=== PATIENT | female | born 1965 | race Caucasian/White ===

== ENCOUNTER 2019-01-21 13:18 | Emergency (ER) | payer OTHER ==
[~2019-01-21] VITALS: Ht 165.1 cm; Wt 110.2 kg
[~2019-01-21 13:18] MED LIST: CIPR500T4 PO; HYDR-3980 PO; METR500T PO
[2019-01-21 13:27] VITALS: Ht 165.1 cm; Wt 110.2 kg
[2019-01-21] MEDS ORDERED: SOD CHLORIDE 0.9% 1,000 ML IV STA (14:31)
[2019-01-21] MEDS ORDERED: ONDANSETRON 4 MG INJ IV STA ×2 (14:31→16:20)
[2019-01-21] MEDS ORDERED: HYDROmorphONE 1 MG/ML SYG IV STA (14:31)
[2019-01-21] MEDS ORDERED: HYDROmorphONE 0.5 MG/0.5 ML SYG IV STA (16:20)
--- NOTE | 2019-01-21 16:23 | ERD ---
ER Documentation Chief Complaint Chief Complaint shoulder pain that radiates to lower back c/o SOB x2 days HPI This is a 53-year-old female who is here because of pain located in the lower mid abdomen and left lower quadrant that radiates to her left flank. She says the pain has been there for 3 days. Originally started is off-and-on sharp pain has become more constant. He says at times the pain gets so bad that it takes her breath away. She has no chest pain or shortness of breath. No history of diverticulitis or prior kidney stones. She said this morning she had a bowel movement and there is a little bit of blood in her stool that was somewhat loose. ROS All systems reviewed and are negative except as per history of present illness. Medications Home Meds Active Scripts Hydrocodone/Acetaminophen (Romney 10-325 Tablet) 1 Each Tablet, 1 TAB PO Q6H PRN for PAIN, #9 TAB Prov:PENNY AGARWALS A. DO 01/21/19 Metronidazole* (Flagyl*) 500 Mg Tablet, 500 MG PO TID for 10 Days, TAB Prov:CHERIEOSMINDASTOLOS A. DO 01/21/19 Ciprofloxacin Hcl* (Ciprofloxacin Hcl*) 500 Mg Tablet, 500 MG PO BID for 7 Days, TAB Prov:LEVICOS,APOSTOLOS A. DO 01/21/19 Allergies Allergies: Coded Allergies: No Known Allergy (Unverified , 01/21/19) PMhx/Soc Medical and Surgical Hx: pt denies Medical Hx History of Surgery: Yes (, TUBAL LITIGATION) Anesthesia Reaction: No Hx Neurological Disorder: No Hx Respiratory Disorders: No Hx Cardiac Disorders: No Hx Psychiatric Problems: No Hx Miscellaneous Medical Probl: No Hx Alcohol Use: No Hx Substance Use: No Hx Tobacco Use: No Smoking Status: Never smoker FmHx Family History: No coronary disease Physical Exam Vitals Vital Signs Date Temp Pulse Resp B/P (MAP) Pulse Ox O2 O2 Flow FiO2 Time Delivery Rate 01/21/19 76 17 193/96 100 Room Air 14:44 (128) 01/21/19 97.7 98 18 195/109 96 13:27 (137) Physical Exam Const: Well-developed, well-nourished Head: Atraumatic, normocephalic Eyes: Normal Conjunctiva, PERRLA, EOMI, normal sclera, no nystagmus ENT: Normal External Ears, Nose and Mouth, moist mucus membranes. Neck: Full range of motion. No meningismus, no lymphadenopathy. Resp: Clear to auscultation bilaterally, no wheezing, rhonchi, rales Cardio: Regular rate and rhythm, no murmurs, S1 S2 present Abd: Soft, mild to moderate left lower quadrant tenderness n tender x 4, non distended. Normal bowel sounds, no guarding or rebound, no pulsitile abdominal masses or bruits Skin: No petechiae or rashes, no ecchymosis , no maculopapular rash Back: No midline or flank tenderness Ext: No cyanosis, or edema, FROM x 4, normal inspection, neurovascularly intact x 4 Neur: Awake and alert, STR 5/5 x 4, sensation intact x 4, no focal findings, cerebellum intact Psych: Normal Mood and Affect Result Diagram: 01/21/19 1458 01/21/19 1458 Results 24 hrs Laboratory Tests Test 01/21/19 14:57 01/21/19 14:58 Urine Color YELLOW Urine Clarity SLIGHTLY CLOUDY Urine pH 7.0 Urine Specific [place] 1.013 Urine Ketones NEGATIVE mg/dL Urine Nitrite NEGATIVE mg/dL Urine Bilirubin NEGATIVE mg/dL Urine Urobilinogen NEGATIVE mg/dL Urine Leukocyte Esterase TRACE Patito/ul Urine Microscopic RBC 0 /HPF Urine Microscopic WBC 1 /HPF Urine Squamous Epithelial Cells FEW /HPF Urine Bacteria FEW /HPF Urine Hemoglobin NEGATIVE mg/dL Urine Glucose NEGATIVE mg/dL Urine Total Protein NEGATIVE mg/dl White Blood Count 5.4 10^3/ul Red Blood Count 3.86 10^6/ul Hemoglobin 12.3 g/dl Hematocrit 37.6 % Mean Corpuscular Volume 97.4 fl Mean Corpuscular Hemoglobin 31.9 pg Mean Corpuscular Hemoglobin Concent 32.7 g/dl Red Cell Distribution Width 12.7 % Platelet Count 284 10^3/UL Mean Platelet Volume 10.7 fl Immature Granulocytes % 0.200 % Neutrophils % 48.9 % Lymphocytes % 37.2 % Monocytes % 10.8 % Eosinophils % 2.2 % Basophils % 0.7 % Nucleated Red Blood Cells % 0.0 /100WBC Immature Granulocytes # 0.010 10^3/ul Neutrophils # 2.6 10^3/ul Lymphocytes # 2.0 10^3/ul Monocytes # 0.6 10^3/ul Eosinophils # 0.1 10^3/ul Basophils # 0.0 10^3/ul Nucleated Red Blood Cells # 0.0 10^3/ul Sodium Level 140 mmol/L Potassium Level 4.1 mmol/L Chloride Level 102 mmol/L Carbon Dioxide Level 29 mmol/L Anion Gap 9 Blood Urea Nitrogen 14 mg/dl Creatinine 0.72 mg/dl Est Glomerular Filtrat Rate mL/min > 60 mL/min Glucose Level 92 mg/dl Calcium Level 9.3 mg/dl Total Bilirubin 0.5 mg/dl Direct Bilirubin 0.00 mg/dl Indirect Bilirubin 0.5 mg/dl Aspartate Amino Transf (AST/SGOT) 22 IU/L Alanine Aminotransferase (ALT/SGPT) 26 IU/L Alkaline Phosphatase 76 IU/L Total Protein 8.0 g/dl Albumin 4.3 g/dl Globulin 3.70 g/dl Albumin/Globulin Ratio 1.16 Lipase 63 U/L Current Medications Medications Dose Sig/Hollie Start Time Status Last (Trade) Ordered Route PRN Stop Time Admin Dose Reason Admin Sodium 1,000 ml @ Q1H STAT 01/21/19 DC 01/21/19 Chloride 1,000 mls/hr IV 14:31 15:17 01/21/19 15:30 1 mg ONCE STAT 01/21/19 DC 01/21/19 Hydromorphone IV 14:31 15:17 HCl 01/21/19 14:33 (Dilaudid) Ondansetron 4 mg ONCE STAT 01/21/19 DC 01/21/19 HCl (Zofran IV 14:31 15:17 Inj) 01/21/19 14:33 Procedures/[place] [id number] Radiology Main Line: [phone] DIAGNOSTIC IMAGING REPORT Patient: HANH MUKHERJEE : 1965 Age: 53 Sex: F MR #: [id number] DOS: 01/21/19 1431 Ordering MD: NOA AGARWAL DO Location: E/R Room/Bed: PROCEDURE: CT Abdomen and Pelvis without contrast. CLINICAL INDICATION: Left flank pain. TECHNIQUE: CT scan of the abdomen and pelvis without contrast was performed on a multidetector high-resolution CT scanner. The patient was scanned without intravenous contrast. Coronal and sagittal reformatted images were obtained from the axial source images. Images were reviewed on a high-resolution PACS workstation. One or more of the following dose reduction techniques were used: Automated exposure control, adjustment of the mA and/or kV according to patient size, use of iterative reconstruction technique. DICOM images are available. The total exam CTDI equals 23.01 mGy and the total exam DLP equals 1468.42 mGy- cm. COMPARISON: None. FINDINGS: CT ABDOMEN: Visualized lung bases: No significant infiltrate or pleural/pericardial effusion. The heart size is normal. Liver: The liver is normal in size and demonstrates normal attenuation. No evidence of suspicious solid hepatic mass or intrahepatic ductal dilatation. Gallbladder and bile ducts: Multiple stones are present in the gallbladder. No gallbladder wall edema or pericholecystic inflammation is seen. The biliary tree is unremarkable. Spleen: Unremarkable. Pancreas: Unremarkable. No ductal dilatation, mass, or peripancreatic stranding. Adrenal glands: Unremarkable. Kidneys: No hydronephrosis, stones, or solid lesions seen. Vasculature: No abdominal aortic aneurysm. Negative IVC. Lymph nodes: No adenopathy. GI: There is no evidence of inflamed appendix. Negative terminal ileum and rectum. No evidence of obstruction. Scattered diverticula are present throughout the sigmoid colon. Peritoneal cavity: No free fluid or free air. CT PELVIS: : Normal appearing bladder, distal ureters and ureterovesiculal junctions. The pelvic organs are unremarkable. Peritoneal cavity: No free fluid or free air. Lymph nodes: No adenopathy. Osseous structures: Moderate degenerative changes are present throughout the visualized thoracolumbar spine. No acute osseous injury. No lytic or blastic lesions. Other: None. IMPRESSION: 1. No evidence of acute abdominopelvic inflammatory process, mass or lymphadenopathy. 2. Diverticulosis. 3. Cholelithiasis. RPTAT: JJ .Arturo Velarde MD, MD Date Time Electronically viewed and signed by .Arturo Velarde MD, MD on 01/21/2019 15:27 .A/ CC: NOA AGARWAL DO [phone] Patient clinically is presenting like she has diverticulitis., Though the CAT scan did not show any acute inflammation I think she probably has some low-grade inflammation the scan is not picking up her microscopic diverticulitis. I will treat with Cipro Flagyl and Romney Departure Diagnosis: Primary Impression: Diverticulitis Additional Impression: Diverticulosis Condition: Stable Patient Instructions: Gallstones, Diverticulitis, Diverticulosis NOA AGARWAL DO Jan 21, 2019 16:19
[2019-01-21] MEDS ORDERED: NICARDipine HCL 30 MG CAPSULE PO ONE (16:30)
[2019-01-21 17:53] VITALS: BP 131/66; PULSE 61; RESP 15
== END 2019-01-21 17:54 | disposition home or self-care (01) ==
LOC: E/R 13:18
DX: K57.32 Diverticulitis of large intestine without perforation or abscess without bleeding (principal); K57.30 Diverticulosis of large intestine without perforation or abscess without bleeding
CPT/HCPCS: 36415; 74176; 80053; 81001; 83690; 85025; 96374; 96375; 96376; J1170; J2405; J7030; Z7502; Z7610